=== PATIENT | female | born 1955 | race Hispanic/Latino ===

== ENCOUNTER 2017-03-21 10:12 | Observation (INO) | payer MEDICAID ==
[~2017-03-21] VITALS: Ht 149.9 cm; Wt 107.3 kg
[2017-03-21 10:27] LABS: BASOPHILS % (AUTO) 0.7 % (0.0-5.0); EOSINOPHILS % (AUTO) 2.6 % (0.0-8.0); HEMATOCRIT 39.6 % (36-48); LYMPHOCYTES % (AUTO) 15.5 % (21.0-51.0); MEAN CORPUSCULAR HEMOGLOBIN 31.2 pg (27.0-33.0); MEAN CORPUSCULAR HGB CONC 33.7 g/dL (32.0-36.0); MEAN CORPUSCULAR VOLUME 92.5 fL (79-99); MONOCYTES % (AUTO) 5.9 % (3.0-13.0); NEUTROPHILS % (AUTO) 75.3 % (40.0-77.0); PLATELET COUNT (AUTO) 77 K/uL (130-400); RED BLOOD CELL COUNT(AUTO) 4.28 MIL/uL (4.00-5.50); RED CELL DISTRIBUTION WIDTH 14.2 % (11.0-15.5); WHITE BLOOD COUNT (AUTO) 5.7 K/uL (4.8-10.8)
[2017-03-21] MEDS ORDERED: ONDANSETRON HCL 4 MG/2 ML VIAL ONE (10:34)
[2017-03-21] MEDS ORDERED: MORPHINE SULFATE 2 MG/ML 1ML SYG ONE (10:35)
[2017-03-21 10:38] LABS: INR 1.03 (0.85-1.15); PARTIAL THROMBOPLASTIN TIME 25.2 SEC (26.3-35.5); PROTHROMBIN TIME 10.8 SEC (9.6-11.6)
[2017-03-21 10:42] LABS: CREATININE 1.2 mg/dL (0.5-1.5); POTASSIUM 3.7 mmol/L (3.5-5.1)
[2017-03-21 11:05] LABS: ALBUMIN 3.1 g/dL (3.5-5.0); BILIRUBIN,TOTAL 0.3 mg/dL (0.2-1.0); CREATINE KINASE MB 0.7 ng/mL (0.5-3.6); TOTAL PROTEIN, SERUM 6.3 g/dL (6.0-8.3)
[2017-03-21] MEDS ORDERED: ASPIRIN 81MG TAB.CHEW ONE (13:04)
[2017-03-21 14:35] LABS: CREATINE KINASE MB 0.5 ng/mL (0.5-3.6); CREATINE KINASE, TOTAL 47 U/L (21-232); MYOGLOBIN 42 ng/mL (10-92); TROPONIN I < 0.04 ng/mL (0.00-0.06)
[2017-03-21] MEDS ORDERED: HYDROCODONE/ACETAMINOPHEN 5/325 MG TAB ONE (15:44)
[2017-03-21] MEDS ORDERED: GABA-529 PO (15:58)
[2017-03-21] MEDS ORDERED: SERT100T12 PO (15:58)
[2017-03-21] MEDS ORDERED: METF500T6 PO (15:58)
[2017-03-21] MEDS ORDERED: ALEN70TA47 PO (15:58)
[2017-03-21] MEDS ORDERED: LISI10TA7 PO (15:58)
[2017-03-21] MEDS ORDERED: ATOR40TA69 PO (15:58)
[2017-03-21] MEDS ORDERED: ALBU8.5H8 IH ×2 (15:58→16:00)
[2017-03-21] MEDS ORDERED: AEC81 PO (15:58)
[2017-03-21] MEDS ORDERED: ERGO500014 PO (15:58)
[2017-03-21] MEDS ORDERED: DICL75TA5 PO (15:58)
[2017-03-21] MEDS ORDERED: ESOM40CA54 PO (15:58)
[2017-03-21 19:14] LABS: CREATINE KINASE MB < 0.5 ng/mL (0.5-3.6); CREATINE KINASE, TOTAL 46 U/L (21-232); MYOGLOBIN 73 ng/mL (10-92); TROPONIN I < 0.04 ng/mL (0.00-0.06)
[2017-03-21] MEDS ORDERED: ENOXAPARIN SODIUM 40 MG/0.4 ML SYRINGE SQ ONE (19:42)
[2017-03-21 22:06] VITALS: BP 165/66
[2017-03-21 23:00] VITALS: BP 129/63
[2017-03-21] MEDS ORDERED: DEXTROSE 50%-WATER 50 ML DISP.SYRIN IV PRN (23:45)
[2017-03-21] MEDS ORDERED: GLUCAGON 1MG KIT 1 MG ML IM PRN (23:45)
[2017-03-22 03:00] VITALS: BP 131/65
[2017-03-22] MEDS: INSULIN R PO SS1 SQ SCH ×2 (05:52→13:03)
[2017-03-22] MEDS ORDERED: SUB TO ALBUTEROL 2.5MG/3ML NEBULES PER P&T IH PRN (06:30)
[2017-03-22] MEDS ORDERED: ALBUTEROL SULFATE 0.083% 2.5 MG/3 ML INH IH PRN (06:30)
[2017-03-22] MEDS ORDERED: ALENDRONATE SODIUM 35 MG TAB PO SCH (07:34)
[2017-03-22 08:00] VITALS: BP 109/75
[2017-03-22] MEDS ORDERED: PANTOPRAZOLE SODIUM 40 MG TABLET.DR PO SCH ×2 (08:00→09:00)
[2017-03-22] MEDS ORDERED: ENOXAPARIN SODIUM 40 MG/0.4 ML SYRINGE SQ SCH (09:00)
[2017-03-22] MEDS ORDERED: METFORMIN HCL 500 MG TABLET PO SCH (09:00)
[2017-03-22] MEDS ORDERED: ASPIRIN 81 MG EC TAB PO SCH ×2 (09:00)
[2017-03-22] MEDS ORDERED: LISINOPRIL 10 MG TABLET PO SCH (09:00)
[2017-03-22] MEDS ORDERED: ERGOCALCIFEROL (VITAMIN D2) 50,000 UNIT CAPSULE PO SCH (09:00)
[2017-03-22] MEDS ORDERED: REGADENOSON 0.4 MG/5 ML PF SYG IVP SCH (11:15)
[2017-03-22] MEDS: GABAPENTIN 100 MG CAPSULE PO SCH ×2 (13:09→13:46)
[2017-03-22 16:00] VITALS: BP 114/59
[2017-03-22] MEDS ORDERED: ATORVASTATIN CALCIUM 40 MG TABLET PO SCH (21:00)
[2017-03-22] MEDS ORDERED: SERTRALINE HCL 50 MG TABLET PO SCH (21:00)
[2017-03-23] MEDS ORDERED: DICLOFENAC SODIUM 75 MG PO SCH (09:00)
== END 2017-03-22 17:00 | disposition home or self-care (01) ==
LOC: EDH 10:12 → EDHIP 10:13 → 4CH 22:02
PROVIDERS: ADMIT Internal Medicine; ATTEND Internal Medicine
DX: R07.89 Other chest pain (principal); E11.9 Type 2 diabetes mellitus without complications; I10 Essential (primary) hypertension; E78.5 Hyperlipidemia, unspecified; F31.9 Bipolar disorder, unspecified; F20.9 Schizophrenia, unspecified
CPT/HCPCS: 36415; 71045; 76700; 78452; 80053; 82550 ×3; 82553 ×3; 82948 ×5; 83874 ×3; 83880; 84484 ×3; 85025; 85610; 85730; 93005; 93017; 94664; 96372; 99285; A9500 ×2; G0378 ×31; J1650; J1815; J2405; J2785; 96374

== ENCOUNTER 2017-03-26 18:44 | Emergency (ER) | payer MEDICAID ==
[~2017-03-26 18:44] MED LIST: AEC81 PO; ALBU8.5H8 IH; ALEN70TA47 PO; ATOR40TA69 PO; DICL75TA5 PO; ERGO500014 PO; ESOM40CA54 PO; GABA-529 PO; LISI10TA7 PO; METF500T6 PO; SERT100T12 PO
[2017-03-26] MEDS ORDERED: TRAMADOL HCL 50 MG TABLET ONE (19:15)
[2017-03-26 19:37] LABS: BASOPHILS % (AUTO) 0.9 % (0.0-5.0); EOSINOPHILS % (AUTO) 3.2 % (0.0-8.0); LYMPHOCYTES % (AUTO) 21.3 % (21.0-51.0); MEAN CORPUSCULAR HEMOGLOBIN 32.3 pg (27.0-33.0); MEAN CORPUSCULAR HGB CONC 34.7 g/dL (32.0-36.0); MONOCYTES % (AUTO) 5.8 % (3.0-13.0); NEUTROPHILS % (AUTO) 68.8 % (40.0-77.0); NUCLEATED RED BLOOD CELLS 0.1 % (0.0-0.19); PLATELET COUNT (AUTO) 79 K/uL (130-400); RED BLOOD CELL COUNT(AUTO) 3.76 MIL/uL (4.00-5.50); RED CELL DISTRIBUTION WIDTH 14.2 % (11.0-15.5)
[2017-03-26 19:48] LABS: INR 0.99 (0.85-1.15); PARTIAL THROMBOPLASTIN TIME 24.7 SEC (26.3-35.5); PROTHROMBIN TIME 10.4 SEC (9.6-11.6)
[2017-03-26 19:49] LABS: POTASSIUM 4.4 mmol/L (3.5-5.1)
[2017-03-26 20:02] LABS: ALBUMIN 3.2 g/dL (3.5-5.0); BILIRUBIN,TOTAL 0.3 mg/dL (0.2-1.0); CREATINE KINASE MB 0.7 ng/mL (0.5-3.6)
[2017-03-26 20:13] LABS: APPEARANCE,URINE Clear (CLEAR); BILIRUBIN,URINE Negative (NEGATIVE); COLOR,URINE Yellow (YELLOW); GLUCOSE, URINE (UA) >=1000 mg/dL (NEGATIVE); KETONES,URINE Negative (NEGATIVE); LEUKOCYTE ESTERASE ,URINE Small (NEGATIVE); NITRATE,URINE Negative (NEGATIVE); OCCULT BLOOD,URINE Negative (NEGATIVE); PROTEIN,URINE Trace (NEGATIVE)
[2017-03-26 20:22] LABS: BACTERIA,URINE Rare /HPF (None Seen); RBC,URINE 0-1 /HPF (0-1); SQUAMOUS EPITHELIAL CELL,UR Rare /LPF (0-2)
[2017-03-26] MEDS ORDERED: IBUPROFEN 600 MG TABLET ONE (21:38)
== END 2017-03-26 23:04 | disposition home or self-care (01) ==
LOC: EDH 18:44
DX: S22.31XA Fracture of one rib, right side, initial encounter for closed fracture (principal); I10 Essential (primary) hypertension; E11.9 Type 2 diabetes mellitus without complications; F20.9 Schizophrenia, unspecified; Z90.710 Acquired absence of both cervix and uterus; W01.0XXA Fall on same level from slipping, tripping and stumbling without subsequent striking against object, initial encounter; Y93.89 Activity, other specified; Y92.89 Other specified places as the place of occurrence of the external cause; Y99.8 Other external cause status
CPT/HCPCS: 36415; 71101; 80053; 81001; 82550; 82553; 83690; 84484; 85025; 85610; 85730; 93005

== ENCOUNTER 2018-06-16 15:30 | Emergency (ER) | payer MEDICAID ==
[~2018-06-16 15:30] MED LIST changes: +ALEN70TA10 PO; -ALEN70TA47 PO; +METF-444 PO; -METF500T6 PO
[2018-06-16] MEDS ORDERED: HYDROCODONE/ACETAMINOPHEN 10/325 MG TAB ONE (15:50)
[2018-06-16 16:54] LABS: BASOPHILS % (AUTO) 0.9 % (0.0-5.0); EOSINOPHILS % (AUTO) 2.5 % (0.0-8.0); HEMATOCRIT 40.3 % (36-48); LYMPHOCYTES % (AUTO) 21.7 % (21.0-51.0); MEAN CORPUSCULAR HEMOGLOBIN 30.3 pg (27.0-33.0); MEAN CORPUSCULAR HGB CONC 33.8 g/dL (32.0-36.0); MEAN CORPUSCULAR VOLUME 89.7 fL (79-99); MONOCYTES % (AUTO) 5.5 % (3.0-13.0); NEUTROPHILS % (AUTO) 69.4 % (40.0-77.0); NUCLEATED RED BLOOD CELLS 0.1 % (0.0-0.19); PLATELET COUNT (AUTO) 74 K/uL (130-400); RED CELL DISTRIBUTION WIDTH 16.6 % (11.0-15.5); WHITE BLOOD COUNT (AUTO) 6.5 K/uL (4.8-10.8)
[2018-06-16 17:06] LABS: CREATININE 1.1 mg/dL (0.5-1.5); POTASSIUM 4.3 mmol/L (3.5-5.1)
[2018-06-16 17:08] LABS: INR 1.04 (0.85-1.15); PARTIAL THROMBOPLASTIN TIME 22.5 SEC (26.3-35.5); PROTHROMBIN TIME 10.9 SEC (9.6-11.6)
[2018-06-16 17:10] LABS: ALBUMIN 3.5 g/dL (3.5-5.0); BILIRUBIN,TOTAL 0.3 mg/dL (0.2-1.0); TOTAL PROTEIN, SERUM 6.9 g/dL (6.0-8.3)
== END 2018-06-16 18:20 | disposition home or self-care (01) ==
LOC: EDH 15:30
DX: S13.9XXA Sprain of joints and ligaments of unspecified parts of neck, initial encounter (principal); S09.90XA Unspecified injury of head, initial encounter; R07.89 Other chest pain; M54.6 Pain in thoracic spine; E11.9 Type 2 diabetes mellitus without complications; I10 Essential (primary) hypertension; F41.9 Anxiety disorder, unspecified; F32.9 Major depressive disorder, single episode, unspecified; F20.9 Schizophrenia, unspecified; Z90.710 Acquired absence of both cervix and uterus; Z98.890 Other specified postprocedural states; W18.39XA Other fall on same level, initial encounter; Y93.89 Activity, other specified; Y92.89 Other specified places as the place of occurrence of the external cause; Y99.8 Other external cause status
CPT/HCPCS: 36415; 70450; 71250; 72125; 80053; 84484; 85025; 85610; 85730; 93005

== ENCOUNTER 2018-09-09 09:45 | Observation (INO) | payer MEDICAID ==
[~2018-09-09] VITALS: Ht 152.4 cm; Wt 109.5 kg
[2018-09-09] MEDS ORDERED: NITROGLYCERIN 1GM/1 INCH PACKET TD ONE (10:08)
[2018-09-09 10:28] LABS: BASOPHILS % (AUTO) 0.5 % (0.0-5.0); EOSINOPHILS % (AUTO) 1.9 % (0.0-8.0); HEMATOCRIT 42.2 % (36-48); LYMPHOCYTES % (AUTO) 22.9 % (21.0-51.0); MEAN CORPUSCULAR HEMOGLOBIN 30.8 pg (27.0-33.0); MEAN CORPUSCULAR VOLUME 93.4 fL (79-99); MONOCYTES % (AUTO) 4.6 % (3.0-13.0); NEUTROPHILS % (AUTO) 70.1 % (40.0-77.0); PLATELET COUNT (AUTO) 76 K/uL (130-400); RED BLOOD CELL COUNT(AUTO) 4.51 MIL/uL (4.00-5.50); RED CELL DISTRIBUTION WIDTH 15.3 % (11.0-15.5); WHITE BLOOD COUNT (AUTO) 6.1 K/uL (4.8-10.8)
[2018-09-09 10:40] LABS: CREATININE 0.9 mg/dL (0.5-1.5); POTASSIUM 3.8 mmol/L (3.5-5.1)
[2018-09-09 10:41] LABS: INR 1.04 (0.85-1.15); PARTIAL THROMBOPLASTIN TIME 23.5 SEC (26.3-35.5); PROTHROMBIN TIME 10.9 SEC (9.6-11.6)
[2018-09-09 10:50] LABS: ALBUMIN 3.5 g/dL (3.5-5.0); BILIRUBIN,TOTAL 0.5 mg/dL (0.2-1.0); TOTAL PROTEIN, SERUM 6.6 g/dL (6.0-8.3)
[2018-09-09] MEDS ORDERED: ENOXAPARIN SODIUM 40 MG/0.4 ML SYRINGE SQ SCH (13:15)
[2018-09-09 14:15] VITALS: BP 119/44
[2018-09-09] MEDS ORDERED: NAPR375T6 PO (14:52)
[2018-09-09] MEDS ORDERED: LOPE2CAP PO (14:52)
[2018-09-09] MEDS ORDERED: DONE5TAB26 PO (14:52)
[2018-09-09] MEDS ORDERED: QUET100T70 PO (14:52)
[2018-09-09] MEDS ORDERED: CYCL10TA7 PO (14:52)
[2018-09-09] MEDS ORDERED: LINA5TAB PO (14:52)
[2018-09-09] MEDS ORDERED: ESOM40CA54 PO (14:52)
[2018-09-09] MEDS ORDERED: DONE5TAB33 PO (14:52)
[2018-09-09] MEDS ORDERED: CLON1TAB12 PO (14:52)
[2018-09-09] MEDS ORDERED: TOPI200T16 PO (14:52)
[2018-09-09] MEDS ORDERED: LORA10TA7 PO (14:52)
[2018-09-09] MEDS ORDERED: INSU100I21 SQ (14:55)
[2018-09-09] MEDS ORDERED: INSU100I3 SQ (14:55)
[2018-09-09] MEDS ORDERED: IPRATROPIUM 0.5 MG/2.5 ML INH IH SCH (16:00)
[2018-09-09] MEDS ORDERED: BENZONATATE 100 MG CAPSULE PO PRN (16:00)
[2018-09-09] MEDS ORDERED: POTASSIUM CHLORIDE 20MEQ/100ML 100 ML IV PRN (16:00)
[2018-09-09] MEDS ORDERED: POTASSIUM CHLORIDE 10% ELIXIR 20 MEQ/15 ML UDCUP PO PRN (16:00)
[2018-09-09] MEDS ORDERED: LIDOCAINE HCL-MPF 1% 2ML VIAL IVP PRN (16:00)
[2018-09-09] MEDS ORDERED: HYDRALAZINE HCL 20 MG/ML VIAL IV PRN (16:00)
[2018-09-09] MEDS ORDERED: ACETAMINOPHEN-CODEINE 300/30MG TAB PO PRN (16:00)
[2018-09-09] MEDS ORDERED: ALBUTEROL SULFATE 0.083% 2.5 MG/3 ML INH IH PRN (16:00)
[2018-09-09] MEDS ORDERED: MORPHINE SULFATE 2 MG/ML 1ML SYG IV PRN (16:00)
[2018-09-09] MEDS ORDERED: POTASSIUM CHLORIDE 20 MEQ ERTAB PO PRN (16:00)
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
[2018-09-09] MEDS: INSULIN HUMULIN R 100 UNIT/ML 3ML SQ SCH ×2 (16:30→21:00)
[2018-09-09 17:06] LABS: APPEARANCE,URINE Clear (CLEAR); BILIRUBIN,URINE Negative (NEGATIVE); COLOR,URINE Yellow (YELLOW); GLUCOSE, URINE (UA) TRACE mg/dL (NEGATIVE); KETONES,URINE Negative (NEGATIVE); LEUKOCYTE ESTERASE ,URINE Trace (NEGATIVE); NITRATE,URINE Negative (NEGATIVE); OCCULT BLOOD,URINE Negative (NEGATIVE); PROTEIN,URINE Negative (NEGATIVE); UROBILINOGEN,URINE 0.2 mg/dL (0.2-1.0)
[2018-09-09 18:01] LABS: RBC,URINE None Seen /HPF (0-1); WBC,URINE 0-1 /HPF (0-1)
[2018-09-09 18:02] LABS: BACTERIA,URINE Few /HPF (None Seen)
[2018-09-09] MEDS: IPRATROPIUM 0.5 MG/2.5 ML INH IH SCH (18:43)
[2018-09-09] MEDS: ALBUTEROL SULFATE 0.083% 2.5 MG/3 ML INH IH SCH (18:43)
[2018-09-09] MEDS ORDERED: SODIUM CHLORIDE 3% FOR INHALATION 4 ML/AMP VIAL.NEB IH ONE ×2 (19:15→23:29)
[2018-09-09 19:20] VITALS: BP 145/76
[2018-09-09] MEDS: TOPIRAMATE 100 MG TAB PO SCH (21:51)
[2018-09-09] MEDS: ATORVASTATIN CALCIUM 40 MG TABLET PO SCH (21:51)
[2018-09-09] MEDS: METFORMIN HCL 500 MG TABLET PO SCH (21:53)
[2018-09-10] VITALS (8 sets, daily range): BP systolic 118–186; BP diastolic 52–80
[2018-09-10 06:19] LABS: BASOPHILS % (AUTO) 0.4 % (0.0-5.0); EOSINOPHILS % (AUTO) 1.8 % (0.0-8.0); HEMATOCRIT 38.8 % (36-48); LYMPHOCYTES % (AUTO) 21.9 % (21.0-51.0); MEAN CORPUSCULAR HGB CONC 33.3 g/dL (32.0-36.0); MEAN CORPUSCULAR VOLUME 93.1 fL (79-99); MONOCYTES % (AUTO) 5.2 % (3.0-13.0); NEUTROPHILS % (AUTO) 70.7 % (40.0-77.0); PLATELET COUNT (AUTO) 68 K/uL (130-400); RED BLOOD CELL COUNT(AUTO) 4.16 MIL/uL (4.00-5.50); RED CELL DISTRIBUTION WIDTH 15.1 % (11.0-15.5); WHITE BLOOD COUNT (AUTO) 5.5 K/uL (4.8-10.8)
[2018-09-10 06:22] LABS: HEMOGLOBIN A1C 8.1 % (4.0-6.0)
[2018-09-10] MEDS ORDERED: SODIUM CHLORIDE 3% FOR INHALATION 4 ML/AMP VIAL.NEB IH ONE ×2 (06:28→17:12)
[2018-09-10 06:30] LABS: INR 1.02 (0.85-1.15); PARTIAL THROMBOPLASTIN TIME 26.2 SEC (26.3-35.5); PROTHROMBIN TIME 10.7 SEC (9.6-11.6)
[2018-09-10 06:38] LABS: ALBUMIN 2.9 g/dL (3.5-5.0); BILIRUBIN,TOTAL 0.3 mg/dL (0.2-1.0); CREATININE 0.9 mg/dL (0.5-1.5); MAGNESIUM 1.5 mg/dL (1.80-2.40); PHOSPHORUS 4.2 mg/dL (2.5-4.9); POTASSIUM 4.1 mmol/L (3.5-5.1); THYROID STIMULATING HORMONE 1.83 uIU/mL (0.36-3.74)
[2018-09-10] MEDS: IPRATROPIUM 0.5 MG/2.5 ML INH IH SCH ×4 (06:38→23:00)
[2018-09-10] MEDS: ALBUTEROL SULFATE 0.083% 2.5 MG/3 ML INH IH SCH ×4 (06:39→23:00)
[2018-09-10] MEDS: INSULIN HUMULIN R 100 UNIT/ML 3ML SQ SCH ×4 (06:50→20:25)
[2018-09-10 07:24] LABS: B-TYPE NATRIURETIC PEPTIDE 67 pg/mL (0-100)
[2018-09-10] MEDS: METFORMIN HCL 500 MG TABLET PO SCH ×2 (08:00→16:32)
[2018-09-10] MEDS ORDERED: REGADENOSON 0.4 MG/5 ML PF SYG IVP SCH (08:15)
[2018-09-10] MEDS ORDERED: ERGOCALCIFEROL (VITAMIN D2) 50,000 UNIT CAPSULE PO SCH (09:00)
--- NOTE | 2018-09-10 10:08 | NUR ---
2D echo pending, Voicemail left at echo lab of pending procedure.
[2018-09-10] MEDS: ASPIRIN 325MG EC TAB 325 MG TABLET.DR PO SCH (10:46)
[2018-09-10] MEDS: LISINOPRIL 10 MG TABLET PO SCH (10:46)
--- NOTE | 2018-09-10 11:12 | NUR ---
bp in 186/80, bp medications given Will recheck bp post stress test
--- NOTE | 2018-09-10 12:00 | NUR ---
lexiscan (stress test) complete; pending results
--- NOTE | 2018-09-10 12:01 | NUR ---
DCP CM met with pt discussed dc plans. Pt is independent prior to admission, lives at home with daughter. Pt has a walker, and uses [facility] in [place]. Denies any other equipments/services. Pt feels safe to go back home, daughter able to assist with transportation and needs as necessary. DC plan to home once stable. CM to cont to follow up. Addendum: 09/10/18 at 1202 by QUINN PIERCE LVN CM Amended: Links added.
[2018-09-10] MEDS ORDERED: MAGNESIUM 2GM PREMIX 50ML 50 ML IV PRN (19:30)
[2018-09-10] MEDS: TOPIRAMATE 100 MG TAB PO SCH (20:26)
[2018-09-10] MEDS: ATORVASTATIN CALCIUM 40 MG TABLET PO SCH (20:26)
[2018-09-11 03:50] VITALS: BP 125/72
[2018-09-11 06:10] LABS: BASOPHILS % (AUTO) 0.7 % (0.0-5.0); EOSINOPHILS % (AUTO) 2.4 % (0.0-8.0); HEMATOCRIT 40.1 % (36-48); LYMPHOCYTES % (AUTO) 22.3 % (21.0-51.0); MEAN CORPUSCULAR HEMOGLOBIN 31.1 pg (27.0-33.0); MEAN CORPUSCULAR HGB CONC 33.7 g/dL (32.0-36.0); MEAN CORPUSCULAR VOLUME 92.1 fL (79-99); MONOCYTES % (AUTO) 5.2 % (3.0-13.0); NEUTROPHILS % (AUTO) 69.4 % (40.0-77.0); PLATELET COUNT (AUTO) 83 K/uL (130-400); RED BLOOD CELL COUNT(AUTO) 4.35 MIL/uL (4.00-5.50); RED CELL DISTRIBUTION WIDTH 15.4 % (11.0-15.5)
[2018-09-11] MEDS: INSULIN HUMULIN R 100 UNIT/ML 3ML SQ SCH ×2 (06:23→11:31)
[2018-09-11 06:43] LABS: MAGNESIUM 1.9 mg/dL (1.80-2.40); POTASSIUM 4.6 mmol/L (3.5-5.1)
[2018-09-11 08:00] VITALS: BP 153/60
[2018-09-11] MEDS: ASPIRIN 325MG EC TAB 325 MG TABLET.DR PO SCH (08:48)
[2018-09-11] MEDS: METFORMIN HCL 500 MG TABLET PO SCH (08:48)
[2018-09-11] MEDS: LISINOPRIL 10 MG TABLET PO SCH (08:49)
[2018-09-11 11:32] VITALS: BP 138/55
== END 2018-09-11 12:50 | disposition home or self-care (01) ==
LOC: EDH 09:45 → EDHIP 09:46 → 3CH 14:26
PROVIDERS: ADMIT Internal Medicine; ATTEND Internal Medicine
DX: R07.89 Other chest pain (principal); E78.5 Hyperlipidemia, unspecified; I10 Essential (primary) hypertension; E11.9 Type 2 diabetes mellitus without complications; E66.01 Morbid (severe) obesity due to excess calories; F31.9 Bipolar disorder, unspecified; F17.210 Nicotine dependence, cigarettes, uncomplicated; F41.9 Anxiety disorder, unspecified; Z82.49 Family history of ischemic heart disease and other diseases of the circulatory system; Z86.73 Personal history of transient ischemic attack (TIA), and cerebral infarction without residual deficits; Z90.710 Acquired absence of both cervix and uterus; Z96.653 Presence of artificial knee joint, bilateral; Z79.4 Long term (current) use of insulin; Z79.82 Long term (current) use of aspirin; Z79.899 Other long term (current) drug therapy
CPT/HCPCS: 36415 ×3; 71045 ×2; 78452; 80048; 80053 ×2; 80061; 81001; 82550; 82948 ×9; 83036; 83690; 83735 ×2; 83874; 83880; 84100 ×2; 84443; 84484 ×2; 85025 ×3; 85610 ×2; 85730 ×2; 87071; 87077; 87186; 87205; 93005 ×2; 93017; 94640 ×4; 94664; 96365; 96366; 96372 ×2; 96375; 99284; A9500 ×2; G0378 ×43; J0360; J1815 ×4; J2785; J3475; 96374

== ENCOUNTER 2018-11-09 11:44 | Emergency (ER) | payer MEDICAID ==
[~2018-11-09 11:44] MED LIST changes: +CLON1TAB12 PO; +CYCL10TA7 PO; +DONE5TAB26 PO; +INSU100I21 SQ; +INSU100I3 SQ; +LINA5TAB PO; +LOPE2CAP PO; +LORA10TA7 PO; +NAPR375T6 PO; +QUET100T70 PO; -SERT100T12 PO; +TOPI200T16 PO
[2018-11-09] MEDS ORDERED: SODIUM CHLORIDE 0.9% 1000ML 1,000 ML IV ONE (12:00)
[2018-11-09] MEDS ORDERED: ONDANSETRON HCL 4 MG/2 ML VIAL ONE (12:02)
[2018-11-09] MEDS ORDERED: MORPHINE SULFATE 4 MG/1ML SYG ONE ×2 (12:02→13:16)
[2018-11-09 12:29] LABS: BASOPHILS % (AUTO) 0.6 % (0.0-5.0); EOSINOPHILS % (AUTO) 2.2 % (0.0-8.0); HEMATOCRIT 38.8 % (36-48); LYMPHOCYTES % (AUTO) 17.7 % (21.0-51.0); MEAN CORPUSCULAR HEMOGLOBIN 31.2 pg (27.0-33.0); MEAN CORPUSCULAR VOLUME 91.8 fL (79-99); MONOCYTES % (AUTO) 4.5 % (3.0-13.0); PLATELET COUNT (AUTO) 94 K/uL (130-400); RED BLOOD CELL COUNT(AUTO) 4.23 MIL/uL (4.00-5.50); WHITE BLOOD COUNT (AUTO) 6.9 K/uL (4.8-10.8)
[2018-11-09 12:38] LABS: POTASSIUM 4.6 mmol/L (3.5-5.1)
[2018-11-09 12:46] LABS: ALBUMIN 3.3 g/dL (3.5-5.0); BILIRUBIN,TOTAL 0.6 mg/dL (0.2-1.0); TOTAL PROTEIN, SERUM 6.8 g/dL (6.0-8.3)
[2018-11-09 13:36] LABS: APPEARANCE,URINE Clear (CLEAR); BILIRUBIN,URINE Negative (NEGATIVE); COLOR,URINE Yellow (YELLOW); GLUCOSE, URINE (UA) 500 mg/dL (NEGATIVE); KETONES,URINE Negative (NEGATIVE); LEUKOCYTE ESTERASE ,URINE Small (NEGATIVE); NITRATE,URINE Negative (NEGATIVE); OCCULT BLOOD,URINE Nonhemolyzed Trace (NEGATIVE); PROTEIN,URINE POS 1+ mg/dL (NEGATIVE)
[2018-11-09 13:56] LABS: BACTERIA,URINE Rare /HPF (None Seen); SQUAMOUS EPITHELIAL CELL,UR Rare /HPF (0-2)
[2018-11-09] MEDS ORDERED: IOHEXOL-350 75 ML VIAL IV ONE (13:59)
[2018-11-09] MEDS ORDERED: LIDOCAINE HCL 2% VISCOUS 15 ML UDCUP ONE (16:54)
[2018-11-09] MEDS ORDERED: MAGNESIUM HYDROXIDE 30 ML/UDCUP ONE (16:54)
== END 2018-11-09 17:10 | disposition home or self-care (01) ==
LOC: EDH 11:44
DX: K29.70 Gastritis, unspecified, without bleeding (principal); F41.9 Anxiety disorder, unspecified; E11.9 Type 2 diabetes mellitus without complications; I10 Essential (primary) hypertension; F32.9 Major depressive disorder, single episode, unspecified; F20.9 Schizophrenia, unspecified; Z98.890 Other specified postprocedural states
CPT/HCPCS: 36415; 74177; 76705; 80053; 81001; 82550; 82948; 83690; 84484; 85025; 93005; 96361; 96374; 96375; 96376; 99285; J2270 ×2; J2405; J7030; Q9967